=== PATIENT | male | born 1975 | race American Indian/Alaskan Native ===

== ENCOUNTER 2021-12-07 12:51 | Emergency (ER) | payer SELFPAY ==
[2021-12-07] MEDS ORDERED: IBUPROFEN 800 MG TAB PO ONE (21:08)
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
[2021-12-07 23:36] VITALS: BP 143/90
== END 2021-12-07 23:42 | disposition home or self-care (01) ==
LOC: ED 12:51
DX: S39.012A Strain of muscle, fascia and tendon of lower back, initial encounter (principal); V89.2XXA Person injured in unspecified motor-vehicle accident, traffic, initial encounter; Z91.018 Allergy to other foods; Y93.89 Activity, other specified; Y92.89 Other specified places as the place of occurrence of the external cause; Y99.8 Other external cause status
CPT/HCPCS: 72100; 99283